=== PATIENT | female | born 1960 | race Caucasian/White ===

== ENCOUNTER 2020-04-30 18:06 | Emergency (ER) | payer SELFPAY ==
[~2020-04-30] VITALS: Ht 170.2 cm; Wt 66.8 kg
[~2020-04-30 18:06] MED LIST: ASPIRIN CHEWABL81 MG PO; BACTRIM DS1 TAB OR; BACTRIM DS1 TAB PO; BACTROBAN2 % EX; DOXYCYCL HYC100 M4 PO; GLIPIZIDE5 M2 PO; GLUCOPHAGE500 MG PO; KEFLEX500 M1 PO; KEFLEX500 MG PO; LIPITOR20 MG PO; METFORMIN500 MG PO; NO CURRENT MEDS
[2020-04-30] MEDS ORDERED: CEPHALEXIN500 M1 PO ×2 (18:25→19:29)
[2020-04-30 18:50] VITALS: BP 150/80
== END 2020-04-30 18:50 | disposition home or self-care (01) | DRG 603 ==
LOC: ED 18:06
DX: L03.115 Cellulitis of right lower limb (principal); I10 Essential (primary) hypertension; E11.9 Type 2 diabetes mellitus without complications; F17.200 Nicotine dependence, unspecified, uncomplicated; Z79.84 Long term (current) use of oral hypoglycemic drugs

== ENCOUNTER 2022-08-16 18:57 | Emergency (ER) | payer MEDICAID ==
[~2022-08-16] VITALS: Ht 170.2 cm; Wt 61.0 kg
[~2022-08-16 18:57] MED LIST changes: +CEPHALEXIN500 M1 PO
[2022-08-16 19:13] VITALS: BP 146/84
[2022-08-16 19:15] VITALS: BP 147/86
[2022-08-16] MEDS ORDERED: SIMVASTATIN5 MG PO (19:22)
[2022-08-16] MEDS ORDERED: ULTRAM50 MG PO (21:43)
[2022-08-16] MEDS ORDERED: AMOXICILLIN500 MG PO (21:50)
[2022-08-16 22:06] VITALS: BP 145/84
== END 2022-08-16 22:21 | disposition home or self-care (01) ==
LOC: ED 18:57
DX: S60.222A Contusion of left hand, initial encounter (principal); L03.114 Cellulitis of left upper limb; I10 Essential (primary) hypertension; E11.9 Type 2 diabetes mellitus without complications; W23.0XXA Caught, crushed, jammed, or pinched between moving objects, initial encounter; Y92.009 Unspecified place in unspecified non-institutional (private) residence as the place of occurrence of the external cause